=== PATIENT | male | born 1950 | race Caucasian/White ===

== ENCOUNTER → 2021-07-23 | Day surgery (SDC) | payer MEDICARE, OTHER ==
[~2021-07-23] VITALS: Ht 172.7 cm; Wt 80.0 kg
[~2021-07-23] MED LIST: IV RINGERS,LACTATED 1000ML 1,000 ML IV SCH; PROPOFOL 10 MG/ML (20ML) VIAL. IV ONE
[2021-07-23 08:12] VITALS: BP 135/72
[2021-07-23 09:20] VITALS: BP 138/70
--- NOTE | 2021-07-24 14:50 | HP ---
DATE OF SERVICE: 07/23/2021 ADMIT DATE: 07/23/2021 REFERRING PHYSICIAN: Jared Torres MD HISTORY OF PRESENT ILLNESS: A 70-year-old male who presents for colorectal screening. His bowel habits are regular without diarrhea or constipation. Weight and appetite are stable. There has been no melena and/or hematochezia. Prior colonoscopy was done in 2016. Family history is negative for a colon cancer, but he has had polyps in the past on prior scopes. PAST MEDICAL HISTORY: Significant for BPH, hypertension. ALLERGIES: TETRACYCLINE. FAMILY HISTORY: Significant for colon polyps in father and sister hypertension, diabetes. SOCIAL HISTORY: Nonsmoker and nondrinker. PAST SURGICAL HISTORY: Noncontributory. REVIEW OF SYSTEMS: Per records. PHYSICAL EXAMINATION: GENERAL: Reveals a well-nourished, well-developed male who is alert and cooperative, in no acute distress. VITAL SIGNS: Pulse is 75, respiratory rate is 15, blood pressure is 125/75. LUNGS: Clear. CARDIOVASCULAR: Reveals an S1, S2, without S3, S4 or appreciable murmur. ABDOMEN: Reveals a soft abdomen, normal bowel sounds, no appreciable hepatosplenomegaly. IMPRESSION: Colorectal screening for history of colonic polyps is recommended at this time. We will recommend that the patient proceed with interval exam. Risks and benefits were discussed. The patient is willing to proceed. KATHRYN/RADHA DR: Cr TID: [id number]
== END | disposition home or self-care (01) ==
LOC: ENDOS 07:36
PROVIDERS: ATTEND Internal Medicine Gastroenterology
DX: Z12.11 Encounter for screening for malignant neoplasm of colon (principal); K64.0 First degree hemorrhoids; K57.30 Diverticulosis of large intestine without perforation or abscess without bleeding; K63.89 Other specified diseases of intestine; I10 Essential (primary) hypertension; N40.0 Benign prostatic hyperplasia without lower urinary tract symptoms; E78.00 Pure hypercholesterolemia, unspecified; M19.90 Unspecified osteoarthritis, unspecified site; Z86.010 Personal history of colon polyps; Z79.899 Other long term (current) drug therapy; Z98.890 Other specified postprocedural states; Z88.1 Allergy status to other antibiotic agents; Z82.49 Family history of ischemic heart disease and other diseases of the circulatory system; Z83.3 Family history of diabetes mellitus; Z83.71 Family history of colonic polyps; Z20.822 Contact with and (suspected) exposure to COVID-19
CPT/HCPCS: 87426; G0105; J2704; 45378